=== PATIENT | female | born 1930 | race Caucasian/White ===

== ENCOUNTER → 2018-10-01 | Outpatient (CLI) | payer MEDICARE, OTHER ==
--- NOTE | 2018-10-01 17:11 | PCVCIMAG ---
APPROVED REPORT Study performed: 10/01/2018 16:22:14 EXAM: Comprehensive 2D, Doppler, and color-flow Echocardiogram Patient Location: Echo lab Status: routine BSA: 1.61 HR: 65 bpmBP: 140/80 mmHg Rhythm: NSR Other Information Study Quality: Good Indications Mitral Valve Prolapse Murmur 2D Dimensions IVSd: 11.96 (7-11mm)LVOT Diam: 18.71 (18-24mm) LVDd: 44.10 mm PWd: 9.99 (7-11mm)Ascending Ao: 35.07 (22-36mm) LVDs: 32.32 (25-40mm) Left Atrium: 41.20 (27-40mm) Aortic Root: 26.20 mm LV Single Plane 4CH: 58.88 % LV Single Plane 2CH: 67.58 % Biplane EF: 64.2 % Volumes Left Atrial Volume (Systole) Single Plane 4CH: 70.50 mLSingle Plane 2CH: 71.80 mL LA ESV Index: 45.00 mL/m2 Aortic Valve AoV Peak Jordon.: 1.58 m/s AO Peak Gr.: 9.92 mmHg Mitral Valve E/A Ratio: 1.3 MV Decel. Time: 216.07 ms MV E Max Jordon.: 0.63 m/s MV A Jordon.: 0.50 m/s TDI E/Lateral E': 4.50E/Medial E': 7.00 Medial E' Jordon.: 0.09 m/s Lateral E' Jordon.: 0.14 m/s Pulmonary Valve PV Peak Gr.: 1.74 mmHg Pulmonary Vein P Vein S: 0.64 m/sP Vein A: 0.34 m/s P Vein D: 0.35 m/sP Vein A Dur.: 103.8 msec P Vein S/D Ratio: 1.83 Tricuspid Valve TR Peak Jordon.: 2.71 m/s TR Peak Gr.: 29.47 mmHg Left Ventricle The left ventricle is normal size. There is normal LV segmental wall motion. There is normal left ventricular wall thickness. Left ventricular systolic function is normal. The left ventricular ejection fraction is within the normal range. LVEF is 60-65%. The left ventricular diastolic function is normal. Right Ventricle The right ventricle is normal size. The right ventricular systolic function is normal. Atria Left atrium is moderately dilated. Right atrium is moderately dilated. Aortic Valve The aortic valve is normal in structure. No aortic regurgitation is present. There is no aortic valvular stenosis. Mitral Valve Mitral valve leaflets are moderately thickened. Moderate to severe mitral regurgitation No evidence of mitral valve stenosis. Mild bi-leaflet mitral valve prolapse. Tricuspid Valve The tricuspid valve is normal in structure. Mild tricuspid regurgitation. Pulmonary artery pressure is 40mmHg. Pulmonic Valve The pulmonary valve is normal in structure. There is no pulmonic valvular regurgitation. Great Vessels The aortic root is normal in size. IVC is normal in size and collapses >50% with inspiration. Pericardium There is no pericardial effusion. <Conclusion> The left ventricle is normal size. LVEF is 60-65%. The left ventricular diastolic function is normal. The right ventricle is normal size. Left atrium is moderately dilated. Right atrium is moderately dilated. The aortic valve is normal in structure. Mitral valve leaflets are moderately thickened. Moderate to severe mitral regurgitation Mild bi-leaflet mitral valve prolapse. Mild tricuspid regurgitation. Pulmonary artery pressure is 40mmHg. The aortic root is normal in size. There is no pericardial effusion.
== END | disposition home or self-care (01) ==
LOC: PCVCIMAG 14:40
PROVIDERS: ATTEND Internal Medicine
DX: I08.3 Combined rheumatic disorders of mitral, aortic and tricuspid valves (principal); R01.1 Cardiac murmur, unspecified
CPT/HCPCS: 93306